=== PATIENT | male | born 1980 | race Caucasian/White ===

== ENCOUNTER 2021-07-05 10:56 | Emergency (ER) | payer OTHER ==
[~2021-07-05] VITALS: Ht 177.8 cm; Wt 79.4 kg
[2021-07-05 11:05] VITALS: BP_SYST 130
[2021-07-05] MEDS ORDERED: DIPHENHYDRAMINE INJ 50 MG/ML VIAL ONE (11:13)
[2021-07-05] MEDS ORDERED: NACL 0.9% 1,000 ML IV ONE (11:15)
[2021-07-05] MEDS ORDERED: HALOPERIDOL LACTATE 5 MG/ML VIAL IVP ONE (11:15)
[2021-07-05] MEDS ORDERED: DIPHENHYDRAMINE INJ 50 MG/ML VIAL IVP ONE (11:15)
[2021-07-05 15:54] VITALS: BP_SYST 101
== END 2021-07-05 15:54 | disposition home or self-care (01) ==
LOC: EDBD 10:56 → SED 10:56
DX: S09.90XA Unspecified injury of head, initial encounter (principal); F10.129 Alcohol abuse with intoxication, unspecified; W22.8XXA Striking against or struck by other objects, initial encounter; Y93.89 Activity, other specified; Y92.89 Other specified places as the place of occurrence of the external cause; Y99.8 Other external cause status; Y90.9 Presence of alcohol in blood, level not specified
CPT/HCPCS: 70450; 72125; 76376; 96361; 96374; 96375; 99285; J1200; J1630; J7030